=== PATIENT | male | born 1990 | race Caucasian/White ===

== ENCOUNTER 2021-12-24 08:39 | Emergency (ER) | payer OTHER ==
[~2021-12-24] VITALS: Ht 175.3 cm; Wt 73.8 kg
[2021-12-24 08:40] VITALS: BP 116/67
[2021-12-24] MEDS ORDERED: ALLE180T33 PO (08:46)
[2021-12-24] MEDS ORDERED: TETRACAINE 0.5% OPHTH SOLN 4ML XX ONE (08:50)
[2021-12-24] MEDS ORDERED: FLUORESCEIN OPHTH 1 MG STRIP XX ONE (08:50)
[2021-12-24] MEDS ORDERED: BLEP10SO OD (09:59)
== END 2021-12-24 10:14 | disposition home or self-care (01) ==
LOC: M ED 08:39
DX: S05.01XA Injury of conjunctiva and corneal abrasion without foreign body, right eye, initial encounter (principal); W22.8XXA Striking against or struck by other objects, initial encounter; Y92.099 Unspecified place in other non-institutional residence as the place of occurrence of the external cause